=== PATIENT | female | born 1935 | race Caucasian/White ===

== ENCOUNTER → 2016-06-15 | Day surgery (SDC) | payer MEDICARE, OTHER ==
[~2016-06-15] VITALS: Ht 154.9 cm; Wt 72.5 kg
[~2016-06-15] MED LIST: ASP81TEC PO; CELE200C PO; CYT5 PO; DILT120T PO; DILT60TA PO; ERGO400C PO; FENO160T6 PO; LANS15CA24 PO; MULT-64 PO; RANI150T13 PO; SYN75 PO; Sodium Chloride LOK Flush 10 mL Syringe IV PRN; TYLENOL ES PO; Tylenol PM PO; [UNRECOGNIZED DRUG - OTHER] PO; citracel PO; fentaNYL-PF 50 mCg/mL 2 mL Inj IVPUSH PRN
[2016-06-15 08:34] VITALS: BP 175/66; PULSE 68; RESP 16; O2SAT 98
[2016-06-15] MEDS: 0.9% Sodium Chloride 1,000 ML IV SCH ×2 (08:48→09:16)
[2016-06-15 09:29] VITALS: BP 136/70; PULSE 53; RESP 14; O2SAT 97
[2016-06-15 09:30] VITALS: BP 136/70; PULSE 53; RESP 16; O2SAT 97
[2016-06-15 09:40] VITALS: BP 131/76; PULSE 58; RESP 14; O2SAT 97
[2016-06-15 09:50] VITALS: BP 139/69; PULSE 50; RESP 16; O2SAT 97
[2016-06-15 10:00] VITALS: BP 142/69; PULSE 51; RESP 16; O2SAT 100
--- NOTE | 2016-06-15 14:26 | ENDO ---
[address] [address] ENDOSCOPY PROCEDURE PATIENT: DALILA SCHAEFER : 1935 MR#: [id number] ADMIT: 06/15/2016 JOB ID: [id number] DATE: 06/15/2016 PRIMARY PROVIDER: Harjit Lawson MD PROCEDURE: Esophagogastroduodenoscopy and a colonoscopy with cold forceps polypectomy. INDICATIONS: A 81-year-old female with symptoms of reflux. Interestingly she is dramatically improved by eliminating bread products. She has not increased her PPI up to b.i.d. yet. She also has a tendency towards constipation and updated colonoscopy is pursued. She has not had one for many years. EQUIPMENT: GIF H 180 J and a PCF H 180 AL. SEDATION: 1. 2 mg Versed. 2. 75 mcg fentanyl. COMPLICATIONS: None identified. BOWEL PREPARATION: Fair, adequate examination. PROCEDURAL INFORMATION: After the risks and benefits were explained, written and verbal informed consent was obtained. The patient was brought into the endoscopy suite and placed into the left lateral decubitus position. Sedation was achieved using the above-stated medications with the addition of oxygen via nasal cannula. The scope was introduced into the mouth through the bite block, and advanced under direct visualization to the second portion of the duodenum. The scope was slowly withdrawn to carefully examine the mucosa for any defects or lesions. Retroflexed views were accomplished in the stomach. The stomach was decompressed. The scope removed from the patient who tolerated the procedure well. The patient was then turned around. A digital rectal examination accomplished. Moderate internal, external, nonbleeding, nonthrombosed hemorrhoids were noted. The scope was introduced into the rectum and advanced to the level of the cecum, as identified by the appendiceal orifice and ileocecal valve. The scope was slowly withdrawn to carefully examine the mucosa for any defects or lesions. Multiple direct views were made through the dentate line for exclusion of pathology. The colon was decompressed. The scope removed from the patient who tolerated the procedure well. FINDINGS: 1. Duodenum: No pathology identified from the bulb through to the second portion. 2. Stomach: No ulcers, no mass lesions. No outlet obstruction. No significant mucosal pathology appreciated throughout including retroflexed views of the LES. 3. Esophagus: The squamocolumnar junction correlated with the top of the gastric folds. The GE junction was at 38 cm from the incisors. The patient did, however, have evidence of LA grade A erosive esophagitis. No other pathology in the esophagus. Very subtle sliding hiatal hernia was noted. 4. Colon: The patient had extensive diverticulosis through the left colon. Diverticula even extended into the right colon. In the rectum there was a diminutive polyp removed with cold forceps. No other significant pathology appreciated throughout. ENDOSCOPIC DIAGNOSES: 1. Subtle sliding hiatal hernia. 2. LA grade A erosive esophagitis. 3. Diverticulosis. 4. Diminutive rectal polyp. 5. Moderate internal external hemorrhoids. RECOMMENDATIONS: 1. Await histopathology. 2. Depending on pathology, patient can consider surveillance colonoscopy in 3-5 years. 3. Continue anti reflux regimen. The patient is doing well with dietary modification and even in the context of LA grade A erosive esophagitis it sounds like she is dramatically improving and perhaps does not need to increase her Prevacid at this point. 4. The patient is encouraged to utilize a fiber supplement on a regular basis to facilitate better bowel movements. 5. Follow up in GI clinic with Catherine Dubon as planned/scheduled.
--- NOTE | 2016-06-16 10:59 | PATH ---
SURGICAL PATHOLOGY Attending Physician:Rosa Alanis CASE STATUS: Signed Out PATIENT NAME: DALILA SCHAEFER PID: [id number] : 1935 DATE COLLECTED:06/15/2016 16:24 SPECIMEN: Rectum, Biopsy CLINICAL HISTORY: 1). RECTAL POLYP FINAL DIAGNOSIS: 1.RECTAL POLYP: TUBULAR ADENOMA. ICD10 CODE D12.8 GROSS DESCRIPTION: The specimen is received in one formalin filled container labeled with the patient's name, sublabeled "rectal polyp" and consists of a 0.3 x 0.3 x 0.3 CM portion of tissue which is entirely submitted in one cassette 06/15/2016 DAC MICRO DESCRIPTION: See diagnosis. ICD-9 CODES: CPT CODES: 1: 86419 Electronically Signed Out Elyse Castro MD [facility] [address], [place] [address] Technical component performed at [facility], [address] [place] [address] Ave[address], [place], [address]
== END | disposition home or self-care (01) ==
LOC: END 00:38
PROVIDERS: ATTEND Internal Medicine Gastroenterology
DX: D12.8 Benign neoplasm of rectum (principal); K64.8 Other hemorrhoids; K64.4 Residual hemorrhoidal skin tags; K57.30 Diverticulosis of large intestine without perforation or abscess without bleeding; K22.10 Ulcer of esophagus without bleeding; K44.9 Diaphragmatic hernia without obstruction or gangrene; K21.9 Gastro-esophageal reflux disease without esophagitis; E03.9 Hypothyroidism, unspecified; E78.5 Hyperlipidemia, unspecified; M79.7 Fibromyalgia; I47.1 Supraventricular tachycardia; R00.2 Palpitations; M06.9 Rheumatoid arthritis, unspecified; R00.1 Bradycardia, unspecified
CPT/HCPCS: 43235; 45380; 88305; 99153; G0500; J2250; J3010; J7030